=== PATIENT | male | born 1990 | race Caucasian/White ===

== ENCOUNTER → 2017-12-05 | Outpatient (CLI) | payer BC ==
[2015-04-10 15:29] VITALS: BP 117/78
[~2017-12-05] MED LIST: BACTRIM DS TAB1 EACH PO; NORCO 325 MG-51 TAB PO; PRILOSEC 20MG20 MG PO
== END ==
LOC: RAD 10:21
DX: M79.662 Pain in left lower leg (principal); R22.41 Localized swelling, mass and lump, right lower limb

== ENCOUNTER → 2017-12-11 | Outpatient (CLI) | payer BC ==
[2015-04-10 15:29] VITALS: BP 117/78
[2017-12-11 13:25] LABS: EOS # 0.4 (0.04-0.40); EOS % 2.9 % (0.0-4.0); HEMATOCRIT 45.6 % (42.0-52.0); HEMOGLOBIN 15.5 g/dL (13.5-18.0); LYMPH# 2.5 (1.50-4.00); MEAN CELL VOLUME 88 fl (78-100); MEAN CORPUSCULAR HEMOGLOBIN 30 pg (27-31); MEAN CORPUSCULAR HGB CONC 34 g/dL (33-37); MEAN PLATELET VOLUME 9.4 fl (7.4-10.4); MONO # 0.8 (0.20-0.80); NEU # 8.5 (1.40-6.50); PLATELET COUNT 221 K/mm3 (130-400); RED BLOOD COUNT 5.16 M/mm3 (4.20-5.60); RED CELL DISTRIBUTION WIDTH 12.5 % (11.5-14.5); WHITE BLOOD COUNT 12.3 K/mm3 (4.8-10.8)
[2017-12-11 13:34] LABS: ALBUMIN 3.9 g/dL (3.5-5.0); BUN/CREATININE RATIO 15.4 (6.0-26.0); CALCIUM 8.1 mg/dL (8.4-10.2); POTASSIUM 4.2 mmol/L (3.6-5.0); TOTAL BILIRUBIN 0.6 mg/dL (0.2-1.3); TOTAL PROTEIN 7.5 g/dL (6.3-8.2)
[2017-12-11 14:19] LABS: URINE APPEARANCE CLEAR; URINE COLOR YELLOW
== END ==
LOC: LAB 12:27
PROVIDERS: Nurse Practitioner Family
DX: R22.41 Localized swelling, mass and lump, right lower limb (principal); M79.604 Pain in right leg; R09.89 Other specified symptoms and signs involving the circulatory and respiratory systems
CPT/HCPCS: Q9967

== ENCOUNTER 2021-01-19 20:28 | Emergency (ER) | payer BC ==
[~2021-01-19] VITALS: Ht 193 cm; Wt 129.5 kg
[2021-01-19] MEDS ORDERED: ELIQUIS5 MG PO (21:23)
[2021-01-19] MEDS ORDERED: MEDROL DOSEPAK4 MG PO (22:49)
[2021-01-19] MEDS ORDERED: CYCLOBENZAPRINE10 M1 PO (22:49)
[2021-01-19 23:32] VITALS: BP 134/78
== END 2021-01-19 23:32 | disposition home or self-care (01) ==
LOC: ED 20:28
DX: M54.5 Low back pain (principal); Z86.718 Personal history of other venous thrombosis and embolism; Z79.01 Long term (current) use of anticoagulants
CPT/HCPCS: J1100; J1885